=== PATIENT | male | born 1960 | race Caucasian/White ===

== ENCOUNTER 2020-04-05 12:34 | Inpatient (IN) | payer OTHER ==
[~2020-04-05] VITALS: Ht 165.1 cm; Wt 87.1 kg
[2020-04-05 12:55] LABS: HEMOGLOBIN 14.8 gm/dl (14.0-17.5); RED BLOOD COUNT 4.99 M/UL (4.20-5.50); WHITE BLOOD COUNT 8.7 K/UL (4.5-11.0)
[2020-04-05 13:21] LABS: BUN/CREATININE RATIO 17 (0-10)
[2020-04-05] MEDS ORDERED: ZESTRIL5 MG PO (15:23)
[2020-04-05] MEDS ORDERED: HYDROCHLOROTHIA25 MG PO (15:23)
[2020-04-05] MEDS ORDERED: GLUCOPHAGE1000 MG PO (15:24)
[2020-04-06] MEDS ORDERED: ASPIRIN EC81 MG PO (09:24)
[2020-04-06] MEDS ORDERED: ATORVASTATIN CA20 MG PO (09:24)
[2020-04-06] MEDS ORDERED: LISINOPRIL10 MG PO (09:24)
== END 2020-04-08 14:45 | disposition home or self-care (01) | DRG 64 ==
LOC: ER1 12:34 → M/S 15:17 → CDU 15:17 → M/S 22:13
PROVIDERS: Emergency Medicine; ADMIT Internal Medicine Infectious Disease
PROC: B24BZZ4 Ultrasonography of Heart with Aorta, Transesophageal (ICD-10-PCS; principal; 2020-04-08)
DX: I63.132 Cerebral infarction due to embolism of left carotid artery (principal); I63.49 Cerebral infarction due to embolism of other cerebral artery; I63.442 Cerebral infarction due to embolism of left cerebellar artery; G81.94 Hemiplegia, unspecified affecting left nondominant side; I10 Essential (primary) hypertension; E11.9 Type 2 diabetes mellitus without complications; Z87.442 Personal history of urinary calculi; Z82.49 Family history of ischemic heart disease and other diseases of the circulatory system; Z79.84 Long term (current) use of oral hypoglycemic drugs; Z79.82 Long term (current) use of aspirin; Z91.14 Patient's other noncompliance with medication regimen; E66.9 Obesity, unspecified; Z68.31 Body mass index [BMI] 31.0-31.9, adult; Z20.828 Contact with and (suspected) exposure to other viral communicable diseases
CPT/HCPCS: ECHO; 70450; 70496; 70498; 70544; 70551; 71045; 80053; 80061; 82550; 82553; 82962; 83036; 83735; 83874; 84443; 84484; 85025; 85610; 85730; 93005; 93306; 93312; 93320; 97161; 99285; G0378; J2250; J7050; Q9967; U0002

== ENCOUNTER 2020-04-28 09:39 | Inpatient (IN) | payer OTHER ==
[~2020-04-28] VITALS: Ht 167.6 cm; Wt 88.0 kg
[~2020-04-28 09:39] MED LIST: ASPIRIN EC81 MG PO; ATORVASTATIN CA20 MG PO; GLUCOPHAGE1000 MG PO; HYDROCHLOROTHIA25 MG PO; LISINOPRIL10 MG PO; ZESTRIL5 MG PO
[2020-04-28 10:29] LABS: HEMOGLOBIN 14.7 gm/dl (14.0-17.5); RED BLOOD COUNT 5.07 M/UL (4.20-5.50); WHITE BLOOD COUNT 9.6 K/UL (4.5-11.0)
[2020-04-28 10:37] LABS: BUN/CREATININE RATIO 15 (0-10)
[2020-04-28] MEDS ORDERED: LISINOPRIL5 MG PO (11:38)
[2020-04-28] MEDS ORDERED: ELIQUIS5 MG PO (11:38)
[2020-04-29] MEDS ORDERED: HYDROCODON-ACE1 EAC4 PO (14:23)
[2020-04-29] MEDS ORDERED: FISH OIL EC 1,1 EACH PO (14:23)
[2020-04-29] MEDS ORDERED: CLOPIDOGREL75 MG PO (14:23)
== END 2020-04-29 15:24 | disposition home or self-care (01) | DRG 39 ==
LOC: OR 09:39 → CCU 20:28
PROVIDERS: Surgery; ADMIT Internal Medicine
PROC: 03UL0KZ Supplement Left Internal Carotid Artery with Nonautologous Tissue Substitute, Open Approach (ICD-10-PCS; 2020-04-28)
PROC: 037 Upper Arteries, Dilation (ICD-10-PCS; 2020-04-28)
PROC: 03CL0ZZ Extirpation of Matter from Left Internal Carotid Artery, Open Approach (ICD-10-PCS; principal; 2020-04-28 16:32)
DX: I63.232 Cerebral infarction due to unspecified occlusion or stenosis of left carotid arteries (principal); I10 Essential (primary) hypertension; E78.5 Hyperlipidemia, unspecified; E66.01 Morbid (severe) obesity due to excess calories; Z20.822 Contact with and (suspected) exposure to COVID-19; E11.9 Type 2 diabetes mellitus without complications; Z88.5 Allergy status to narcotic agent; Z79.01 Long term (current) use of anticoagulants; Z79.82 Long term (current) use of aspirin; Z79.4 Long term (current) use of insulin; Z79.899 Other long term (current) drug therapy; Z87.442 Personal history of urinary calculi; Z68.31 Body mass index [BMI] 31.0-31.9, adult; Z82.49 Family history of ischemic heart disease and other diseases of the circulatory system
CPT/HCPCS: 36415; 71045; 80053; 81001; 82962; 85025; 85610; 85730; 87635; 93005; C1768; J0690; J1580; J1644; J2001; J2370; J2405; J2704; J2710; J2720; J3010; J7030; J7040; J7050; J7120

== ENCOUNTER 2020-05-18 10:41 | Emergency (ER) | payer OTHER ==
[~2020-05-18 10:41] MED LIST changes: +CLOPIDOGREL75 MG PO; +ELIQUIS5 MG PO; +FISH OIL EC 1,1 EACH PO; +HYDROCODON-ACE1 EAC4 PO; +LISINOPRIL5 MG PO
[2020-05-18 12:52] LABS: HEMOGLOBIN 14.3 gm/dl (14.0-17.5); RED BLOOD COUNT 4.78 M/UL (4.20-5.50)
[2020-05-18 13:19] LABS: BUN/CREATININE RATIO 20 (0-10)
[2020-05-18] MEDS ORDERED: OMNICEF 300 MG300 MG PO (14:57)
[2020-05-18] MEDS ORDERED: IBUPROFEN600 MG PO (14:59)
== END 2020-05-18 15:09 | disposition home or self-care (01) ==
LOC: ER1 10:41
PROVIDERS: Emergency Medicine
DX: N45.1 Epididymitis (principal); I10 Essential (primary) hypertension; E11.9 Type 2 diabetes mellitus without complications; Z86.73 Personal history of transient ischemic attack (TIA), and cerebral infarction without residual deficits; Z88.5 Allergy status to narcotic agent
CPT/HCPCS: 76870; 80053; 81001; 85025; 87040; 87086; 96374; 96375; 99284; J2270; J2405; J7030

== ENCOUNTER 2020-05-25 14:38 | Emergency (ER) | payer OTHER ==
[~2020-05-25 14:38] MED LIST changes: +IBUPROFEN600 MG PO; +OMNICEF 300 MG300 MG PO
[2020-05-25 15:36] LABS: RED BLOOD COUNT 4.64 M/UL (4.20-5.50); WHITE BLOOD COUNT 10.8 K/UL (4.5-11.0)
[2020-05-25 17:05] LABS: BUN/CREATININE RATIO 19 (0-10)
== END 2020-05-25 18:52 | disposition home or self-care (01) ==
LOC: ER1 14:38
PROVIDERS: Student in an Organized Health Care Education/Training Program
DX: R06.00 Dyspnea, unspecified (principal); E11.9 Type 2 diabetes mellitus without complications; I10 Essential (primary) hypertension; Z20.822 Contact with and (suspected) exposure to COVID-19; Z86.73 Personal history of transient ischemic attack (TIA), and cerebral infarction without residual deficits; Z88.5 Allergy status to narcotic agent; Z79.84 Long term (current) use of oral hypoglycemic drugs; Z79.01 Long term (current) use of anticoagulants; Z79.899 Other long term (current) drug therapy; Z79.82 Long term (current) use of aspirin
CPT/HCPCS: 0240U; 36600; 71045; 80053; 82550; 82553; 82803; 83874; 83880; 84484; 85025; 85610; 85730; 93005; 99285; Q9967

== ENCOUNTER 2021-04-07 15:10 | Emergency (ER) | payer OTHER ==
[2021-04-07] MEDS ORDERED: BACTRIM 400-801 EACH PO (17:30)
== END 2021-04-07 17:38 | disposition home or self-care (01) ==
LOC: ER1 15:10
DX: N45.1 Epididymitis (principal)
CPT/HCPCS: 76870; 99284